=== PATIENT | female | born 1995 | race Caucasian/White ===

== ENCOUNTER 2017-01-06 12:33 | Emergency (ER) | payer BC, OTHER ==
[2017-01-06 12:47] VITALS: BP 132/88
[2017-01-06] MEDS ORDERED: Acetaminophen Soln 650 MG/20.3 ML UD Cup PO ONE (13:01)
[2017-01-06] MEDS ORDERED: Acetaminophen 325 MG Tab PO ONE (13:04)
--- NOTE | 2017-01-06 13:04 | EDM.PDOC ---
[id number] Complaint: ABD PAIN Time Seen by Provider: 01/06/17 12:45 Source of Information: Reports: Patient, Family History Limitations: Reports: No Limitations - History of Present Illness INITIAL COMMENTS - FREE TEXT/NARRATIVE: 21 y.o.w.f came to the ed due to pain at her left lower abd. with painful urinations. LNP 4 weeks ago. Today, she had mld spotting, No N/V, she had loose stool in the last 2 days. No other acute medical issues. Onset: Gradual, Unknown/Unsure Onset Date: 01/04/17 Onset Time: 07:00 Duration: Day(s):, Intermittent Location: Reports: Pelvis Quality: Reports: Ache, Burning, Dull Severity: Mild Improves with: Reports: Rest Worsens with: Reports: Movement Context: Reports: Other (?) Associated Symptoms: Reports: No Other Symptoms Left Lower Abdomen Pain Score (Numeric/FACES): 10 - Related Data Allergies Allergy/AdvReac Type Severity Reaction Status Date / Time No Known Allergies Allergy Verified 01/06/17 13:36 Home Meds: Home Meds NK [No Known Home Meds] 01/06/17 [History] ED ROS GENERAL - Review of Systems Review Of Systems: See Below Constitutional: Reports: No Symptoms HEENT: Reports: No Symptoms Respiratory: Reports: No Symptoms Cardiovascular: Reports: No Symptoms Endocrine: Reports: No Symptoms GI/Abdominal: Reports: Abdominal Pain, Diarrhea (2 days) : Reports: Dysuria, Irregular Menses Musculoskeletal: Reports: No Symptoms Skin: Reports: No Symptoms Neurological: Reports: No Symptoms Psychiatric: Reports: No Symptoms Hematologic/Lymphatic: Reports: No Symptoms Immunologic: Reports: No Symptoms ED EXAM, GI/ABD - Physical Exam Exam: See Below Exam Limited By: No Limitations General Appearance: Alert, WD/WN, Mild Distress Eyes: Bilateral: Normal Appearance Ears: Normal External Exam Nose: Normal Inspection Throat/Mouth: Normal Inspection Head: Atraumatic, Normocephalic Neck: Normal Inspection, Supple, Non-Tender, Full Range of Motion Respiratory/Chest: No Respiratory Distress, Lungs Clear, Normal Breath Sounds, Chest Non-Tender Cardiovascular: Normal Peripheral Pulses, Regular Rate, Rhythm, No Edema GI/Abdominal: Tenderness (LLQ and suprapubic tendernes ) (Female) Exam: Deferred Rectal (Female) Exam: Deferred Back Exam: Normal Inspection, Full Range of Motion Extremities: Normal Inspection, Normal Range of Motion, Non-Tender, No Pedal Edema Neurological: Alert, Oriented, CN II-XII Intact, Normal Cognition, Normal Gait Psychiatric: Normal Affect, Normal Mood Skin Exam: Warm, Dry, Intact, Normal Color, No Rash Lymphatic: No Adenopathy Course - Vital Signs Text/Narrative:: 21 y.o.w.f came to the ed due to pain at her left lower abd. with painful urinations. LNP 4 weeks ago. Today, she had mld spotting, No N/V, she had loose stool in the last 2 days. No other acute medical issues. PE: LLQ abd. tenderness Imaging: Pelvic US: Ovarian Cyst, official report is pending Impression: Ovarian Cyst Tx: Pain meds Plan: D/C with instructions Last Recorded V/S: Last Vital Signs Temp 36.9 C 01/06/17 12:45 Pulse 105 H 01/06/17 12:45 Resp 18 01/06/17 12:45 BP 132/88 01/06/17 12:45 Pulse Ox 99 01/06/17 12:45 - Orders/Labs/Meds Labs: Laboratory Tests 01/06/17 01/06/17 Range/Units 13:15 13:15 Urine Color Yellow (YELLOW) Urine Appearance Slightly cloudy (CLEAR) Urine pH 5.0 (5.0-6.5) Ur Specific [place] 1.025 (1.010-1.025) Urine Protein Trace (NEGATIVE) mg/dL Urine Glucose (UA) Normal (NEGATIVE) mg/dL Urine Ketones Negative (NEGATIVE) mg/dL Urine Occult Blood Large H (NEGATIVE) Urine Nitrite Negative (NEGATIVE) Urine Bilirubin Small H (NEGATIVE) Urine Urobilinogen Normal (NEGATIVE) mg/dL Ur Leukocyte Esterase Negative (NEGATIVE) Urine RBC 30-40 H (0) Urine WBC 0-5 (0) Ur Squamous Epith Cells Many H (NS,R,O) Urine Bacteria Moderate H (NS) Urine Mucus Many H (NS) Urine HCG, Qual Negative (NEGATIVE) Meds: Medications Discontinued Medications Generic Name Dose Route Start Last Admin Trade Name Freq PRN Reason Stop Dose Admin Acetaminophen 650 mg 01/06/17 13:01 01/06/17 13:15 Tylenol PO 01/06/17 13:02 Not Given ONETIME ONE Acetaminophen 650 mg 01/06/17 13:04 01/06/17 13:08 Tylenol PO 01/06/17 13:05 650 mg NOW ONE Administration Ibuprofen 600 mg 01/06/17 14:59 01/06/17 15:05 Motrin PO 01/06/17 15:00 600 mg ONETIME ONE Administration Departure - Departure Time of Disposition: 15:00 Disposition: Home, Self-Care 01 Condition: Good Clinical Impression: Ovarian cyst - Discharge Information Referrals: Teresa Rushing RN [facility] [Primary Care Provider] - Forms: ED Department Discharge Additional Instructions: Please take Tylenol and or motrin with food, please f/u, please come back if your symptom get worse acutely.
[2017-01-06] MEDS ORDERED: Ibuprofen 600 MG Tab PO ONE (14:59)
--- NOTE | 2017-01-07 11:19 | US ---
INDICATION: Pelvic pain, non-. ULTRASOUND OF THE PELVIS, NON-OB: Multiple ultrasonic images were obtained 12/2016 with transabdominal probe and revealed the uterus to be anteverted. The endometrial cavity echo appeared grossly normal. Myometrium is not ideally visualized with the bladder almost empty. Cystic mass is noted at the right ovary which will need to be better visualized with transvaginal probe. It measured approximately 4 x 3 cm. Left ovary was not imaged. No adnexal mass lesions or free fluid collections were demonstrated. IMPRESSION: Study is somewhat limited. Need endovaginal probe ultrasound for further evaluation of the uterus and ovaries, including a cystic mass at the right ovary. INDICATION: Pelvic pain, non-, bleeding bright red / need better visualization of the uterus and ovarian cystic mass, as well as the left ovary than was possible with the transabdominal probe. TRANSVAGINAL PELVIC ULTRASOUND: Multiple ultrasonic images were obtained of the pelvis with transvaginal probe, 01/06/2017, and revealed the uterus to measure 8.6 x 3.4 x 5.2 cm. The endometrial cavity echo measured 4.4 mm. The right ovary measured 5.4 x 4.1 x 3.3 cm. The left ovary measured 4.4 x 3.8 x 2.7 cm. The endometrial cavity echo appeared normal for menstrual state. Myometrium is slightly heterogeneous, raising question of some minimal fibroid changes. A follow-up study in 2 weeks is recommended for further evaluation of the myometrium. The right ovary showed evidence of a cystic mass measuring 4.3 x 2.95 x 1.8 cm with some irregularity of its shape, most likely representing a follicular cyst. Follow-up study in 2 weeks and/or 6 weeks is recommended for further evaluation. At the left ovary there are follicles present, as well as two cystic structures adjacent to one another or possibly a single cystic structure with a septated appearance measuring 2.04 x 2.88 x 1.8 cm and 1 x 1 x 2.2 cm. For this finding , a follow-up study is also recommended in 2 and/or 6 weeks with transvaginal probe. No adnexal mass lesions or free fluid collections were identified. IMPRESSION: Cysts at both ovaries, likely physiologic. However, follow-up is recommended in 2 and/or 6 weeks to confirm involution, as neoplastic process is difficult to entirely exclude. MTDD
== END 2017-01-06 15:20 | disposition home or self-care (01) ==
LOC: FB.ED 12:33
DX: N83.202 Unspecified ovarian cyst, left side (principal)
CPT/HCPCS: 76830; 76857; 81001; 81025; 99284; A9270; 99283